=== PATIENT | female | born 1995 | race Hispanic/Latino ===

== ENCOUNTER 2017-09-27 10:01 | Emergency (ER) | payer OTHER ==
[2017-09-27 10:32] VITALS: O2SAT 98
--- NOTE | 2017-09-27 10:42 | ED PDOC ---
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 Pt slipped and fell outside on snow today, struck the back of her head. Pt complaining onow of headache, dizziness and has had 4 episodes of vomiting. pt was by herself when she fell, unsure of LOC. Past Medical History Reviewed: Nursing Documentation, Vital Signs Vital Signs: Last Vital Signs Temp Pulse 79 09/27/17 10:30 Resp 18 09/27/17 10:30 BP Pulse Ox 98 09/27/17 10:30 - Medical History PMH: No Chronic Diseases - Surgical History Surgical History: No Surg Hx - Family History Family History: States: No Known Family Hx - Living Arrangements Living Arrangements: With Family - Social History Current smoker - smoking cessation education provided: No Alcohol: Social Drugs: Denies - Home Medications Home Medications: Ambulatory Orders Medication Instructions Recorded Ibuprofen [Motrin] 600 mg PO Q6 #20 tab 09/27/17 Metoclopramide [Reglan] 10 mg PO Q4 #10 tab 09/27/17 - Allergies Allergies/Adverse Reactions: Allergies Allergy/AdvReac Type Severity Reaction Status Date / Time No Known Allergies Allergy Verified 09/27/17 10:30 Review of Systems ROS Statement: Except As Marked, All Systems Reviewed And Found Negative Gastrointestinal: Positive for: Nausea, Vomiting Neurological: Positive for: Headache Physical Exam - Reviewed Nursing Documentation Reviewed: Yes Vital Signs Reviewed: Yes - Physical Exam Appears: Positive for: Well, Non-toxic, No Acute Distress Head Exam: Positive for: ATRAUMATIC, NORMAL INSPECTION, NORMOCEPHALIC Skin: Positive for: Normal Color, Warm, DRY Eye Exam: Positive for: EOMI, Normal appearance, PERRL ENT: Positive for: Normal ENT Inspection Neck: Positive for: Normal, Painless ROM Cardiovascular/Chest: Positive for: Regular Rate, Rhythm Respiratory: Positive for: CNT, Normal Breath Sounds Gastrointestinal/Abdominal: Positive for: Normal Exam, Bowel Sounds, Soft Back: Positive for: Normal Inspection Extremity: Positive for: Normal ROM Neurologic/Psych: Positive for: Alert, Oriented - ECG O2 Sat by Pulse Oximetry: 98 Medical Decision Making Medical Decision Making: Medicated with Zofran upon arrival Head and C-Spine CT unremarkable. After CT (-) Medicated with Toradol IM Doing well on re-eval, no complaints of headache Neuro exam non focal Disposition - Clinical Impression Clinical Impression: Head injury, Concussion - Patient ED Disposition Is Patient to be Admitted: No - Disposition Disposition: Routine/Home Disposition Time: 12:00 Condition: STABLE Prescriptions: Ibuprofen [Motrin] 600 mg PO Q6 #20 tab Metoclopramide [Reglan] 10 mg PO Q4 #10 tab Instructions: Head Injury (ED), Concussion (ED) Forms: [employer] (Ukrainian)
--- NOTE | 2017-09-27 12:51 | CT ---
PROCEDURE: CT HEAD WITHOUT CONTRAST. HISTORY: head injury () LOC COMPARISON: None available. TECHNIQUE: Axial computed tomography images were obtained through the head/brain without intravenous contrast. Radiation dose: Total exam DLP = 771.65 mGy-cm. This CT exam was performed using one or more of the following dose reduction techniques: Automated exposure control, adjustment of the mA and/or kV according to patient size, and/or use of iterative reconstruction technique. FINDINGS: HEMORRHAGE: No intracranial hemorrhage. BRAIN: Normal swanson-white matter differentiation and density are appreciated throughout the cerebrum and cerebellum with the brainstem appearing unremarkable as well. There is no mass effect. There is no suspicious extra-axial fluid collection and the midline brain anatomy appears diffusely unremarkable. VENTRICLES: Unremarkable. No hydrocephalus. CALVARIUM: No destructive bony lesion or displaced fracture identified including through the skullbase. PARANASAL SINUSES: Unremarkable as visualized. No significant inflammatory changes. MASTOID AIR CELLS: Unremarkable as visualized. No inflammatory changes. OTHER FINDINGS: None. IMPRESSION: Unremarkable unenhanced CT of the Head.
--- NOTE | 2017-09-27 12:55 | CT ---
PROCEDURE: CT Cervical Spine without contrast HISTORY: Trauma, status post fall with loss of consciousness. COMPARISON: None available. TECHNIQUE: Axial computed tomography images were obtained of the cervical spine without the use of intravenous contrast. Coronal and sagittal reformatted images were created and reviewed. Radiation dose: Total exam DLP = 362.22 mGy-cm. This CT exam was performed using one or more of the following dose reduction techniques: Automated exposure control, adjustment of the mA and/or kV according to patient size, and/or use of iterative reconstruction technique. FINDINGS: VERTEBRAE: No fracture. Straightened curvature. No destructive bony lesion. DISCS/SPINAL CANAL/NEURAL FORAMINA: No significant central canal or neural foraminal stenosis. Discs heights are grossly preserved. PARASPINAL SOFT TISSUES: Unremarkable. OTHER FINDINGS: None. IMPRESSION: Straightened cervical curvature. Clinically correlate. Otherwise, unremarkable CT of the cervical spine.
[2017-09-27 13:42] VITALS: BP 128/78; PULSE 78; RESP 17
== END 2017-09-27 13:42 | disposition home or self-care (01) ==
LOC: H.ER 10:01
DX: S06.0X0A Concussion without loss of consciousness, initial encounter (principal); W01.0XXA Fall on same level from slipping, tripping and stumbling without subsequent striking against object, initial encounter; Y92.89 Other specified places as the place of occurrence of the external cause
CPT/HCPCS: 70450; 72125; 81025; 96372; 99284; J1885; J2405

== ENCOUNTER 2018-01-18 00:31 | Emergency (ER) | payer OTHER ==
[2018-01-18 00:45] VITALS: BP 115/78; PULSE 81; RESP 16; TEMP 97.4; O2SAT 100
[2018-01-18 01:44] LABS: BASO # 0.1 K/uL (0.0-0.2); BASO % 0.9 % (0.0-2.0); EOS % 0.3 % (0.0-4.0); HEMOGLOBIN 13.9 g/dL (12.0-16.0); MEAN CELL VOLUME 90.1 fl (81.0-99.0); MEAN CORPUSCULAR HEMOGLOBIN 30.3 pg (27.0-31.0); MEAN CORPUSCULAR HGB CONC 33.7 g/dL (33.0-37.0); MEAN PLATELET VOLUME 9.6 fl (7.2-11.7); MONO # 0.4 K/uL (0.0-0.8); MONO % 4.5 % (0.0-10.0); NEUT # 5.4 K/uL (1.8-7.0); NEUT % 68.3 % (50.0-75.0); RBC 4.59 Mil/uL (3.80-5.20); RED CELL DISTRIBUTION WIDTH 13.2 % (11.5-14.5); WHITE BLOOD COUNT 7.9 K/uL (4.8-10.8)
[2018-01-18 01:55] LABS: ALB/GLOB RATIO 1.2 (1.0-2.1); ALBUMIN 5.1 g/dL (3.5-5.0); ALT/SGPT 57 U/L (9-52); AST/SGOT 43 U/L (14-36); BLOOD UREA NITROGEN 15 mg/dl (7-17); CALCIUM 9.4 mg/dL (8.4-10.2); GFR AFRICAN-AMERICAN > 60; GFR NON-AFRICAN AMERICAN > 60
--- NOTE | 2018-01-18 03:24 | ED PDOC ---
HPI: Psych/Substance Abuse Time Seen by Provider: 01/18/18 00:42 Chief Complaint (Nursing): Alcohol Ingestion Chief Complaint (Provider): alcohol intoxication History Per: Patient History/Exam Limitations: no limitations Onset/Duration Of Symptoms: Days (01/18/18) Modifying Factor(s): Alcohol Additional Complaint(s): 22 year old female was brought to the ED by her boyfriend for evaluation of alcohol intoxication. Earlier at bar, she had 3 glasses of wine and then called her bf to pick her up. States she woke up on the ground of flight to stairs with bleeding on the head. She refused to come to the ED, but her boyfriend urged her to come. Reports of no other complaints. Denies headache, neck pain, abdominal pain, chest pain, or pain in extremities. Patient states, she was admitted to the hospital for head injury and had to say in for two days. PMD: No Family Provider Past Medical History Reviewed: Historical Data, Nursing Documentation, Vital Signs Vital Signs: Last Vital Signs Temp 97.4 F L 01/18/18 00:41 Pulse 81 01/18/18 00:41 Resp 16 01/18/18 00:41 BP 115/78 01/18/18 00:41 Pulse Ox 100 01/18/18 00:41 - Medical History PMH: No Chronic Diseases - Surgical History Surgical History: No Surg Hx - Family History Family History: States: No Known Family Hx - Social History Current smoker - smoking cessation education provided: No Alcohol: Social Drugs: Denies - Home Medications Home Medications: Ambulatory Orders Medication Instructions Recorded Ibuprofen [Motrin] 600 mg PO Q6 #20 tab 09/27/17 Metoclopramide [Reglan] 10 mg PO Q4 #10 tab 09/27/17 Cephalexin [cephalexin] 500 mg PO Q6 #12 cap 01/18/18 - Allergies Allergies/Adverse Reactions: Allergies Allergy/AdvReac Type Severity Reaction Status Date / Time No Known Allergies Allergy Verified 09/27/17 10:30 Review of Systems ROS Statement: Except As Marked, All Systems Reviewed And Found Negative ENT: Negative for: Other (neck pain) Cardiovascular: Negative for: Chest Pain Gastrointestinal: Negative for: Abdominal Pain Neurological: Negative for: Headache Physical Exam - Reviewed Nursing Documentation Reviewed: Yes Vital Signs Reviewed: Yes - Physical Exam Appears: Positive for: Well, Non-toxic, No Acute Distress Head Exam: Positive for: ATRAUMATIC, NORMAL INSPECTION, NORMOCEPHALIC (On left parietal scalp, 2 inch linear superficial laceration w/o active bleeding ) Skin: Positive for: Normal Color, Warm, Dry Eye Exam: Positive for: EOMI, Normal appearance, PERRL ENT: Positive for: Normal ENT Inspection Neck: Positive for: Normal, Painless ROM, Supple. Negative for: Decreased ROM Cardiovascular/Chest: Positive for: Regular Rate, Rhythm. Negative for: Murmur Respiratory: Negative for: Decreased Breath Sounds, Accessory Muscle Use, Respiratory Distress Gastrointestinal/Abdominal: Positive for: Normal Exam, Bowel Sounds, Soft. Negative for: Tenderness, Guarding, Rebound Back: Positive for: Normal Inspection. Negative for: L CVA Tenderness, R CVA Tenderness Extremity: Positive for: Normal ROM. Negative for: Tenderness, Pedal Edema, Deformity Neurologic/Psych: Positive for: Alert, Oriented (x3), Gait (steady), Other ( slurred speech) - Laboratory Results Result Diagrams: 01/18/18 01:38 01/18/18 01:38 - ECG O2 Sat by Pulse Oximetry: 100 (RA) Pulse Ox Interpretation: Normal - Progress ED Course And Treament: 033 CT head and cervical spine w/o contrast: No evidence of acute intracranial injury or fractures. 0350 On re-evaluation, pt. in no distress. No slurred speech. Gait steady unassisted. Pt will be dc'd withJacinto pt's boyfriend. Medical Decision Making Medical Decision Making: Time: 53 Initial Plan: --Cervical Spine w/o contrast [CT] --Head w/o contrast [CT] --Alcohol serum --CMP --Drug screen --ED --CBC w/ differential --Glucose, Blood, POC --Reevaluation Time:330 EXAM: CT Head Without Intravenous Contrast FINDINGS: LIMITATIONS: Mild streak/motion artifact. BRAIN: No acute abnormality identified. No acute hemorrhage seen within the brain. No acute extra-axial fluid collections visualized. No evidence of significant mass effect within the brain. Normal swanson-white matter differentiation. VENTRICLES: No evidence of significant hydrocephalus. BONES/JOINTS: No acute fractures or other acute bony abnormality noted. SOFT TISSUES: Soft tissue swelling in the left upper, lateral scalp. Foci of air also seen in the scalp in this area, which are presumably related to an underlying soft tissue laceration. SINUSES: Visualized paranasal sinuses appear clear. MASTOID AIR CELLS: Mastoid air cells appear clear. IMPRESSION: - No evidence of acute intracranial injury or fractures. - See above for remaining findings Time:344 EXAM: CT Cervical Spine Without Intravenous Contrast FINDINGS: VERTEBRAE: Findings compatible with an old fracture involving the spinous process of C7, stable in appearance compared to the prior CT. No acute cervical spine fractures visualized. No significant vertebral subluxation seen on the sagittal reformatted images. No evidence of acute facet dislocation. DISCS/SPINAL CANAL/NEURAL FORAMINA: Intervertebral disc heights are preserved. No evidence of bony spinal canal stenosis. SOFT TISSUES: No acute abnormality of the visualized soft tissues is seen. LUNG APICES: No pneumothorax seen. IMPRESSION: - No acute cervical spine fractures identified. - See above for remaining findings. Scribe Attestation: Documented by Maria Ines Lockett, acting as a scribe for Nael Martinez PA-C Provider Scribe Attestation: All medical record entries made by the Scribe were at my direction and personally dictated by me. I have reviewed the chart and agree that the record accurately reflects my personal performance of the history, physical exam, medical decision making, and the department course for this patient. I have also personally directed, reviewed, and agree with the discharge instructions and disposition. Procedures - Time-Out Type of Procedure: laceration repair Site of Procedure: L parietal scalp Correct Patient (with visual ID + MR# on ID Band): Yes Correct Procedure: Yes Correct Site Marked: Yes PA/Tech: Michelle - Laceration/Wound Repair Laceration repair Wound Length (cm): 5 Wound's Depth, Shape: superficial, linear Wound Explored: clean Irrigated w/ Saline (ccs): 500 Wound Repaired With: [place] (3) Wound Complexity: Simple Disposition - Clinical Impression Clinical Impression: Alcohol intoxication, Marijuana use - Patient ED Disposition Is Patient to be Admitted: No - Disposition Referrals: Kurt Bradley [Outside] Disposition: Routine/Home Disposition Time: 03:50 Condition: GOOD Additional Instructions: Staple removal in 5-7 days. Return to ED if symptoms worsen. Prescriptions: Cephalexin [cephalexin] 500 mg PO Q6 #12 cap Instructions: Laceration Repair With [place] (DC), Minor Head Injury (DC) Forms: Kurt Winters (Northern Irish), [facility] ED School/Work Excuse
--- NOTE | 2018-01-18 03:31 | CT ---
EXAM: CT Head Without Intravenous Contrast EXAM DATE/TIME: 01/18/2018 12:54 AM CLINICAL HISTORY: 22 years old, female; Injury or trauma; Fall; Initial encounter; Blunt trauma (contusions or hematomas) TECHNIQUE: Axial computed tomography images of the head/brain without intravenous contrast. All CT scans at this facility use one or more dose reduction techniques, viz.: automated exposure control; ma/kV adjustment per patient size (including targeted exams where dose is matched to indication; i.e. head); or iterative reconstruction technique. Coronal and sagittal reformatted images were created and reviewed. COMPARISON: Prior head CT of 2017-09-27 FINDINGS: LIMITATIONS: Mild streak/motion artifact. BRAIN: No acute abnormality identified. No acute hemorrhage seen within the brain. No acute extra-axial fluid collections visualized. No evidence of significant mass effect within the brain. Normal swanson-white matter differentiation. VENTRICLES: No evidence of significant hydrocephalus. BONES/JOINTS: No acute fractures or other acute bony abnormality noted. SOFT TISSUES: Soft tissue swelling in the left upper, lateral scalp. Foci of air also seen in the scalp in this area, which are presumably related to an underlying soft tissue laceration. SINUSES: Visualized paranasal sinuses appear clear. MASTOID AIR CELLS: Mastoid air cells appear clear. IMPRESSION: - No evidence of acute intracranial injury or fractures. - See above for remaining findings.
[2018-01-18 03:43] LABS: BARBITURATES, UR NEGATIVE (NEGATIVE); BENZODIAZEPINES, UR NEGATIVE (NEGATIVE); OPIATES, UR NEGATIVE (NEGATIVE); PHENCYCLIDINE, UR NEGATIVE (NEGATIVE)
--- NOTE | 2018-01-18 03:46 | CT ---
EXAM: CT Cervical Spine Without Intravenous Contrast EXAM DATE/TIME: 01/18/2018 12:55 AM CLINICAL HISTORY: 22 years old, female; Injury or trauma; Fall; Initial encounter; Blunt trauma TECHNIQUE: Axial computed tomography images of the cervical spine without intravenous contrast. All CT scans at this facility use one or more dose reduction techniques, viz.: automated exposure control; ma/kV adjustment per patient size (including targeted exams where dose is matched to indication; i.e. head); or iterative reconstruction technique. Coronal and sagittal reformatted images were created and reviewed. COMPARISON: Prior cervical spine CT of 2017-09-27 FINDINGS: VERTEBRAE: Findings compatible with an old fracture involving the spinous process of C7, stable in appearance compared to the prior CT. No acute cervical spine fractures visualized. No significant vertebral subluxation seen on the sagittal reformatted images. No evidence of acute facet dislocation. DISCS/SPINAL CANAL/NEURAL FORAMINA: Intervertebral disc heights are preserved. No evidence of bony spinal canal stenosis. SOFT TISSUES: No acute abnormality of the visualized soft tissues is seen. LUNG APICES: No pneumothorax seen. IMPRESSION: - No acute cervical spine fractures identified. - See above for remaining findings.
== END 2018-01-18 04:10 | disposition home or self-care (01) ==
LOC: H.ER 00:31
DX: F10.129 Alcohol abuse with intoxication, unspecified (principal); F12.90 Cannabis use, unspecified, uncomplicated; S01.01XA Laceration without foreign body of scalp, initial encounter; X58.XXXA Exposure to other specified factors, initial encounter